=== PATIENT | male | born 1950 ===

== ENCOUNTER 2018-04-24 15:51 | Outpatient (REF) | payer MEDICARE, MEDICAID, SELFPAY ==
[2018-04-24 21:19] LABS: Anion Gap 10.2 mmol/L (3-11); BUN 12 mg/dL (7-18); CO2 26.8 mmol/L (21.0-32.0); CREATININE 1.12 mg/dL (0.70-1.30); Calcium 9.4 mg/dL (8.5-10.1); Chloride 104 mmol/L (98-107); Glucose 95 mg/dL (70-100); Potassium 4.8 mmol/L (3.5-5.1); Sodium 141 mmol/L (136-145)
[2018-04-28 11:57] LABS: Hepatitis C Ab w Rflx HCV PCR Negative (NEGAT)
== END 2018-04-24 16:11 ==
LOC: NCHCN 15:51
PROVIDERS: PCP Internal Medicine; Visit Provider Internal Medicine
DX: E11.9 Type 2 diabetes mellitus without complications (principal); I10 Essential (primary) hypertension; E78.5 Hyperlipidemia, unspecified; F17.220 Nicotine dependence, chewing tobacco, uncomplicated; Z11.59 Encounter for screening for other viral diseases; Z01.84 Encounter for antibody response examination
CPT/HCPCS: 80048; 86803

== ENCOUNTER 2019-08-27 14:58 | Outpatient (REF) | payer MEDICARE, MEDICAID, SELFPAY ==
[2019-08-27 21:15] LABS: Hemoglobin A1C 5.9 % (3.8-5.6)
[2019-08-27 21:30] LABS: Anion Gap 11.3 mmol/L (3-11); BUN 13 mg/dL (7-18); CO2 24.7 mmol/L (21.0-32.0); CREATININE 1.24 mg/dL (0.70-1.30); Calcium 9.3 mg/dL (8.5-10.1); Calculated LDL 72 mg/dL; Chloride 103 mmol/L (98-107); Cholesterol 157 mg/dL (<200); Estimated GFR 57.97 (mL/min/1.73m2); Glucose 119 mg/dL (74-106); HDL Cholesterol 56 mg/dL (40-60); Potassium 4.6 mmol/L (3.5-5.1); Sodium 139 mmol/L (136-145); Triglyceride 146 mg/dL (<150)
== END 2019-08-27 15:18 ==
LOC: NCHCN 14:58
PROVIDERS: PCP Internal Medicine; Visit Provider Internal Medicine
DX: E11.9 Type 2 diabetes mellitus without complications (principal); I10 Essential (primary) hypertension; E78.5 Hyperlipidemia, unspecified; F17.220 Nicotine dependence, chewing tobacco, uncomplicated
CPT/HCPCS: 80048; 80061; 83036

== ENCOUNTER 2020-08-22 15:54 | Outpatient (REF) | payer MEDICARE, MEDICAID, SELFPAY ==
[2020-08-22 21:18] LABS: Anion Gap 6.8 mmol/L (3-11); BUN 12 mg/dL (7-18); CO2 27.2 mmol/L (21.0-32.0); Calcium 9.5 mg/dL (8.5-10.1); Chloride 105 mmol/L (98-107); Estimated GFR 54.73 (mL/min/1.73m2); Glucose 125 mg/dL (74-106); Potassium 4.6 mmol/L (3.5-5.1); Sodium 139 mmol/L (136-145)
== END 2020-08-22 16:14 ==
LOC: NCHCN 15:54
PROVIDERS: PCP Internal Medicine; Visit Provider Internal Medicine
DX: I10 Essential (primary) hypertension (principal)
CPT/HCPCS: 80048

== ENCOUNTER 2022-01-10 14:06 | Outpatient (REF) | payer MEDICARE, MEDICAID, SELFPAY ==
[2022-01-10 21:17] LABS: HCT 43.7 % (40.0-50.0); HGB 14.5 g/dL (13.5-17.5); MCH 31.7 pg (27.0-33.0); MCHC 33.2 % (32.0-36.0); MCV 96 fL (80-95); MPV 10.1 fL (8.0-11.0); Platelet Count 259 10^3/uL (130-400); RBC 4.57 10^6/uL (4.36-5.78); RDW 13.3 % (11.8-14.1); RDW-SD 46.3 fL
[2022-01-10 21:29] LABS: ALT 31 U/L (16-63); AST 28 U/L (15-37); Albumin 4.2 g/dL (3.4-5.0); Alkaline Phosphatase 58 U/L (46-116); Anion Gap 10.1 mmol/L (3-11); BUN 14 mg/dL (7-18); Bilirubin, Total 0.3 mg/dL (0.2-1.0); CO2 23.9 mmol/L (21.0-32.0); CREATININE 1.3 mg/dL (0.70-1.30); Calcium 9.5 mg/dL (8.5-10.1); Chloride 104 mmol/L (98-107); Estimated GFR 54.42 (mL/min/1.73m2); Glucose 124 mg/dL (74-106); Potassium 5.2 mmol/L (3.5-5.1); Sodium 138 mmol/L (136-145); Total Protein 7.9 g/dL (6.4-8.2)
== END 2022-01-10 14:07 | disposition home or self-care (01) ==
LOC: NCHCN 14:06
PROVIDERS: PCP Internal Medicine; Visit Provider Family Medicine
DX: I10 Essential (primary) hypertension (principal); Z01.818 Encounter for other preprocedural examination
CPT/HCPCS: 80053; 85027

== ENCOUNTER 2022-02-06 10:48 | Outpatient (REF) | payer MEDICARE, MEDICAID, SELFPAY ==
[2022-02-07 15:18] LABS: COVID-19 RT-PCR UVMMC Result Negative (Negative)
== END 2022-02-06 10:49 | disposition home or self-care (01) ==
LOC: NCHCN 10:48
PROVIDERS: PCP Internal Medicine; Visit Provider Family Medicine
DX: Z20.822 Contact with and (suspected) exposure to COVID-19 (principal); Z01.818 Encounter for other preprocedural examination
CPT/HCPCS: U0003

== ENCOUNTER 2022-02-09 09:38 | Day surgery (SDC) | payer MEDICARE, MEDICAID, SELFPAY ==
[2022-02-09 09:45] VITALS: BP 143/74; PULSE 60; RESP 18; TEMP 36.5; O2SAT 98
[2022-02-09] MEDS: Tropicam./Phenyleph. (1/2.5%) 5 ML BTL OD ×3 (10:00→10:10)
--- NOTE | 2022-02-09 10:57 | W.ANESPRE ---
General Info Date of Service Date Performed: 02/09/22 Height: 5 ft 10 in Weight: 94.8 kg Body Mass Index (BMI): 29.9 Surgical Procedure: Operation Date: 02/09/22 12:40 Proposed Procedure Side Surgeon p Cataract Extraction with IOL Implant Right Qamar Jenkins MD Meds Allergies and Home Medications Allergies Allergy/AdvReac Type Severity Reaction Status Date / Time No Known Allergies Allergy Unverified 02/09/22 09:26 Home Medication Medication Instructions Recorded aspirin,buffered (calcium 325 mg PO DAILY 07/15/15 carbonate-magnesium) 325 mg tablet glimepiride 4 mg tablet 4 mg PO DAILY 07/15/15 lisinopril 10 mg tablet 10 mg PO DAILY 07/15/15 simvastatin 40 mg tablet 40 mg PO DAILY 07/15/15 metformin 1,000 mg tablet 1 tab PO BID 07/21/15 (Glucophage) aspirin 81 mg chewable tablet 1 tab PO DAILY 02/09/22 Current Visit Medications: Current Medications Generic Name Dose Route Start Last Admin Trade Name Freq PRN Reason Stop Dose Admin Acetaminophen 1,000 mg 02/09/22 06:00 Acetaminophen 500 Mg Tab PO Q4H PRN PRN Miscellaneous Medication 0 ml 02/09/22 06:00 Prednisolone 1%, Moxifloxacin 0.5%, Nepafenac 0.1% 5ml Btl OD DIRECTED [facility] Miscellaneous Medication 0 ml 02/09/22 06:00 02/09/22 10:10 Tropicam./Phenyleph. (1/2.5%) 5 Ml Btl OD 1 drp DIRECTED [facility] Administration Tetracaine HCl 0 ml 02/09/22 06:00 Tetracaine 0.5% 4 Ml Btl OD DIRECTED [facility] Medical History Medical History Diabetes HTN (hypertension) Surgical History Surgical History History of cataract surgery Tobacco Smoking/Tobacco Use Status: Former Tobacco Use Alcohol Alcohol Intake: current Alcohol intake frequency: 0-2 drinks per day Alcohol type: beer Substance Use Substance use: Never Substance use type: does not use Vital Signs and Lab Results Vital Signs Most Recent Vital Signs in EMR: Most Recent Vital Signs Temp Pulse Resp BP Pulse Ox 36.5 C 60 18 143/74 H 98 02/09/22 09:45 02/09/22 09:45 02/09/22 09:45 02/09/22 09:45 02/09/22 09:45 Point of Care Results Point of Care Results: Finger Stick Blood Glucose 114 02/09/22 10:01 Lab Results Blood Type / Crossmatch: No Data to Display Complete Blood Count: White Blood Count 8.60 10^3/uL (4.4-10.8) 01/10/22 13:45 Red Blood Count 4.57 10^6/uL (4.36-5.78) 01/10/22 13:45 Hemoglobin 14.5 g/dL (13.5-17.5) 01/10/22 13:45 Hematocrit 43.7 % (40.0-50.0) 01/10/22 13:45 Platelet Count 259 10^3/uL (130-400) 01/10/22 13:45 Complete Metabolic Panel: Sodium Level 138 mmol/L (136-145) 01/10/22 13:45 Potassium Level 5.2 mmol/L (3.5-5.1) H 01/10/22 13:45 Chloride Level 104 mmol/L (98-107) 01/10/22 13:45 Carbon Dioxide Level 23.9 mmol/L (21.0-32.0) 01/10/22 13:45 Blood Urea Nitrogen 14 mg/dL (7-18) 01/10/22 13:45 Creatinine 1.3 mg/dL (0.70-1.30) 01/10/22 13:45 Estimated GFR/1.73 m2 54.42 (mL/min/1.73m2) 01/10/22 13:45 Calcium Level 9.5 mg/dL (8.5-10.1) 01/10/22 13:45 Albumin 4.2 g/dL (3.4-5.0) 01/10/22 13:45 Glucose Level 124 mg/dL (74-106) H 01/10/22 13:45 Liver Function Panel: Alanine Aminotransferase (ALT/SGPT) 31 U/L (16-63) 01/10/22 13:45 Aspartate Amino Transf (AST/SGOT) 28 U/L (15-37) 01/10/22 13:45 Coagulation Panel: No Data to Display Cardiac Panel: No Data to Display Arterial Blood Gas: No Data to Display Venous Blood Gas: No Data to Display Pancreas Panel: No Data to Display Thyroid Panel: No Data to Display Infectious Disease: Coronavirus (COVID-19)(PCR) Negative (Negative) 02/06/22 10:00 Blood Cultures: No Data to Display Toxicology Panel: No Data to Display Anesthesia Assessment and Plan Anesthesia History Personal History: No History of Anesthesia Complications Family History: No Family History of Anesthesia Complications Exercise Tolerance Exercise Tolerance: Metabolic Equivalents>4 Pertinent Negatives Pertinent Negatives: No Symptoms of GERD, No Major Cardiovascular Symptoms or Complaints and No Major Pulmonary Symptoms or Complaints Cardiac & Pulmonary Exam Cardiac Exam: Normal S1/S2 Heart Sounds Pulmonary Exam: Clear Bilateral Breath Sounds Implantable Cardiac Device Does patient have a Pacemaker or an ICD?: No Airway Exam Known Difficult Airway: No Mallampati Class: 1 Mouth Opening: Normal (> 3cm) Thyromental Distance: Greater than 3 cm Neck Range of Motion: Full ROM Neck Circumference: Normal Teeth Condition: Edentulous ASA Classification ASA Score: ASA 2 Emergency Case?: No NPO Status NPO Status: NPO Clears >2 hours, Solids >8 hours Anesthesia Plan Resuscitation Status: Full Code Anesthesia Technique: MAC Anesthesia Airway Planned: Natural Airway Monitors Used: Standard Monitors
[2022-02-09 11:25] VITALS: BMI 29.9
[2022-02-09] MEDS: Tetracaine 0.5% 4 ML BTL OD (11:36)
[2022-02-09] MEDS: Duovisc Viscoelastic System EACH 1 EACH (11:37)
[2022-02-09] MEDS: Balanced Salt Soln.-PLUS 500 ML BAG (11:37)
[2022-02-09] MEDS: Lidocaine 2% Jelly 6 ML SYR (11:38)
[2022-02-09] MEDS: Povidone-Iodine Ophth 30 ML BTL (11:39)
[2022-02-09] MEDS: Trypan Blue 0.06% 0.5 ML SYR (11:39)
--- NOTE | 2022-02-09 12:12 | W.PM.DSUDISC ---
Discharge Plan Disposition Patient Disposition: HOME Condition: Good Discharge Details Attending Provider: Qamar Jenkins Primary Care Provider: Ole Johnson Home Meds and New Rx's Prescriptions: No Action aspirin,buffd-calcium carb-mag 325 MG tablet 325 mg PO DAILY simvastatin 40 MG tablet 40 mg PO DAILY lisinopril 10 MG tablet 10 mg PO DAILY glimepiride 4 MG tablet 4 mg PO DAILY metformin [Glucophage] 1,000 MG tablet 1 tab PO BID aspirin 81 mg tablet,chewable 1 tab PO DAILY Label Comments: 1 once a day Discharge Instructions Stand Alone Forms: Post-op Topical Cataract, Hector Llamas (DSU) Discharge Orders Discharge Orders: Discharge Order (Routine); Ordered 02/09/22 Ordered By: Qamar Jenkins DS: Diagnosis Discharge Diagnosis (1) Nuclear sclerotic cataract of right eye: Status: Resolved
--- NOTE | 2022-02-09 12:14 | ROE_ITS ---
Date of service: 02/09/22 Time of Service: 12:14 Operative Note Operative Note DATE OF PROCEDURE: 02/09/22 PRE-OP DIAGNOSIS: Dense brunescent nuclear cataract, right eye POST-OP DIAGNOSIS: same PROCEDURE: Cataract extraction using phacoemulsification with intraocular lens implantation, right eye, using capsular staining with Vision Blue SURGEON: Qamar Jenkins ANESTHESIA TYPE: Local By Surgeon and MAC Refer to Anesthesia Record PATHOLOGY: none sent COMPLICATIONS: None Patient was transported to: same day Patient's condition: stable Implants: [employer] / [employer] Tecnis [id number] Indications: Progressive visual loss due to cataract, right eye Procedure Description: CATARACT SURGERY OPERATIVE REPORT PREOPERATIVE DIAGNOSIS: 1. Dense brunescent nuclear cataract, right eye 2. Poor red reflex secondary to #1 POSTOPERATIVE DIAGNOSIS: Same OPERATION: 1. Cataract extraction using phacoemulsification with posterior chamber intraocular lens implant, right eye. 2. Capsular staining with Vision Blue IOL: IOL Senior Scheduler/Model: [employer] Coy / ANISA Tecnis [id number] IOL Power: + 20.5 diopters IOL Serial Number: [id number] Optic Diameter: 6.0mm Haptic/Overall Diameter: 13.0mm PHACO INFO: Gildardo Centurion Vision System with OZil and Active Fluidics Cumulative Dispersed Energy (CDE): 39.31 seconds SURGEON: Qamar Jenkins MD, LAVONNE ANESTHESIA: Monitored Anesthesia Care (MAC), with local sub-tenon's anesthetic infiltration COMPLICATIONS: None SPECIMENS: None INDICATIONS FOR PROCEDURE: The patient is a 71-year-old gentleman with history of bilateral cataracts who previously underwent cataract surgery in his left eye several years ago. He now presents with a dense brunescent nuclear cataract in the right eye. The option of cataract surgery was offered to the patient and he wished to proceed. PROCEDURE: The correct surgical eye was identified and marked as the right eye and the pupil was dilated in the preoperative area using mydriatics and cycloplegics. The dilated pupil size was 6.0 mm. He elected to proceed without oral sedation. The patient was brought to the operating room where cardiopulmonary monitoring was instituted and surgical time-out was performed, confirming the correct operative eye and IOL power. Topical anesthesia was administered and ophthalmic povidone-iodine 5% was instilled into the conjunctival fornices. Lidocaine gel was applied to the cornea and the marlyn-ocular area was prepped with Betadine 10% solution and draped in the usual sterile fashion for intraocular surgery, including an aperture drape. A Tegaderm transparent film dressing was cut in half and used t o cover the lashes and lid margins. Care was taken to sequester the lashes and lid margins under the Tegaderm dressing. A lid speculum was placed between the lids of the operative eye and the Gildardo Lux[employer] Revalia operating microscope was maneuvered into position. Erin scissors were then used to make a conjunctival buttonhole approximately 6mm posterior to the limbus in the inferonasal quadrant. Blunt dissection was carried out to expose bare sclera, and a blunt-tipped sub-tenon?s anesthesia cannula was introduced and passed posteriorly along the globe where non- preserved plain lidocaine was injected into posterior sub-Tenon?s space. A sideport knife was used to make a paracentesis port inferotemporally. Intraocular phenylephrine/lidocaine was injected into the anterior chamber. Air was injected into the anterior chamber, followed by Vision Blue, which was painted over the anterior capsule and then irrigated out with BSS. The anterior chamber was filled with viscoelastic. A 2.6 mm keratome knife was used to create a 2-plane near clear corneal tunnel extending approximately 2 mm into clear cornea superior temporally.. A flap was raised on the anterior capsule and capsulorhexis forceps were used to complete a continuous curvilinear capsulorhexis of 5.0 mm. Balanced salt solution was then used to perform cortical cleaving hydrodissection and nuclear hydrodelineation until the lens could be freely rotated within the capsular bag. The lens nucleus was then disassembled and removed within the capsular bag and iris plane using phacoemulsification. A stop and chop technique was used. Viscoat was intermittently injected into the anterior chamber to protect the corneal endothelium due to the very dense brunescent nucleus. Residual cortical material was removed using the I/A handpiece. The posterior capsule was carefully polished to remove as much residual lens epithelial cells as safely possible. The capsular bag was then inflated and the anterior chamber deepened with viscoelastic. The lens implant described above was inserted into the capsular bag using the ANISA [place] Injector. A Kuglen hook was used to dial the IOL into position. Residual viscoelastic was then removed first from posterior to the IOL, then from the anterior chamber using the I/A handpiece. The lens implant was noted to center nicely within the capsular bag. The incisions were stromally hydrated, and the anterior chamber was reformed using BSS. Then 0.5cc of moxifloxacin 1.0mg/ml were injected into the capsular bag and anterior chamber. The incisions were checked with a Weck spear and found to be secure. Several drops of ophthalmic povidone-iodine 5% were then applied to the eye followed by two drops of Imprimis combination prednisolone/moxifloxacin/nepafenac solution. The drapes were removed and a clear plastic protective eye shield was placed over the eye. The patient was then returned to Same Day Surgery in stable condition.
[2022-02-09 12:17] VITALS: BP 134/71; PULSE 56; RESP 20; TEMP 36; O2SAT 98
--- NOTE | 2022-02-09 12:22 | W.ANESPOSTOP ---
Postoperative Evaluation Date, Time and Location Date Performed: 02/09/22 Time Performed: 12:18 Patient Location: Day Surgery Unit Vital Signs Most Recent Imported Vital Signs: Most Recent Vital Signs Temp Pulse Resp BP Pulse Ox 36.0 C L 56 L 20 134/71 98 02/09/22 12:17 02/09/22 12:17 02/09/22 12:17 02/09/22 12:17 02/09/22 12:17 Pain Score Most Recent Pain Score: Most Recent Pain Score Pain Level 0 02/09/22 12:17 Assessment Mental Status: Awake (Alert & Oriented to Patient Baseline) Airway and Respiratory Function: Patent airway with normal (patient baseline) respiratory exam Cardiovascular Function: Hemodynamically Stable Hydration Status: Adequately Hydrated Nausea & Vomiting: No Nausea or Vomiting Pain: Pt. Denies Any Pain Peripheral Nerve Block: Patient did not receive a nerve block
== END 2022-02-09 12:30 | disposition home or self-care (01) ==
PROVIDERS: PCP Internal Medicine; Visit Provider Ophthalmology
PROC: (CPT 66984; principal; 2022-02-09 12:30)
DX: H25.11 Age-related nuclear cataract, right eye (principal); E11.9 Type 2 diabetes mellitus without complications; I10 Essential (primary) hypertension
CPT/HCPCS: 66984; V2632

== ENCOUNTER 2023-04-22 17:48 | Outpatient (REF) | payer MEDICARE, MEDICAID, SELFPAY ==
[2023-04-22 21:55] LABS: ALT 31 U/L (16-63); AST 21 U/L (15-37); Albumin 4.2 g/dL (3.4-5.0); Alkaline Phosphatase 63 U/L (46-116); Anion Gap 6.3 mmol/L (3-11); BUN 16 mg/dL (7-18); Bilirubin, Total 0.3 mg/dL (0.2-1.0); CO2 26.7 mmol/L (21.0-32.0); CREATININE 1.3 mg/dL (0.70-1.30); Calcium 10.1 mg/dL (8.5-10.1); Chloride 101 mmol/L (98-107); Estimated GFR 58.37 (mL/min/1.73m2); Glucose 106 mg/dL (74-106); Potassium 4.6 mmol/L (3.5-5.1); Sodium 134 mmol/L (136-145); Total Protein 8.2 g/dL (6.4-8.2)
== END 2023-04-22 17:49 | disposition home or self-care (01) ==
LOC: NCHCN 17:48
PROVIDERS: Visit Provider Family Medicine
DX: I10 Essential (primary) hypertension (principal); E11.9 Type 2 diabetes mellitus without complications
CPT/HCPCS: 80053

== ENCOUNTER 2024-05-18 21:15 | Outpatient (REF) | payer MEDICARE, MEDICAID, SELFPAY ==
[2024-05-18 21:21] LABS: ALT 37 U/L (16-63); AST 25 U/L (15-37); Albumin 4.1 g/dL (3.4-5.0); Alkaline Phosphatase 63 U/L (46-116); Anion Gap 10.6 mmol/L (3-11); BUN 8 mg/dL (7-18); Bilirubin, Total 0.46 mg/dL (0.2-1.0); CO2 27.4 mmol/L (21.0-32.0); CREATININE 1.2 mg/dL (0.70-1.30); Calcium 9.6 mg/dL (8.5-10.1); Chloride 105 mmol/L (98-107); Estimated GFR 63.85 (mL/min/1.73m2); Glucose 97 mg/dL (74-106); Potassium 4.6 mmol/L (3.5-5.1); Sodium 143 mmol/L (136-145); Total Protein 7.6 g/dL (6.4-8.2)
== END 2024-05-18 21:16 | disposition home or self-care (01) ==
LOC: NCHCN 21:15
PROVIDERS: Visit Provider Family Medicine
DX: I10 Essential (primary) hypertension (principal)
CPT/HCPCS: 80053

== ENCOUNTER 2025-06-24 15:41 | Outpatient (REF) | payer MEDICARE, MEDICAID, SELFPAY ==
[2025-06-24 20:23] LABS: HCT 41.8 % (40.0-50.0); HGB 14.4 g/dL (13.5-17.5); MCH 31.5 pg (27.0-33.0); MCHC 34.4 % (32.0-36.0); MCV 92 fL (80-95); MPV 9.9 fL (8.0-11.0); Platelet Count 264 10^3/uL (130-400); RBC 4.57 10^6/uL (4.36-5.78); RDW 12.1 % (11.8-14.1); RDW-SD 40.3 fL; WBC 8.89 10^3/uL (4.4-10.8)
[2025-06-24 20:37] LABS: ALT 27 U/L (10-49); AST 23 U/L (<34); Albumin 4.7 g/dL (3.4-5.0); Alkaline Phosphatase 55 U/L (46-116); Anion Gap 5.1 mmol/L (3-11); BUN 13 mg/dL (9-23); Bilirubin, Total 0.30 mg/dL (0.2-1.2); CO2 27.9 mmol/L (20.0-31.0); Calcium 9.5 mg/dL (8.3-10.6); Chloride 103 mmol/L (98-107); Glucose 122 mg/dL (74-106); Potassium 4.7 mmol/L (3.5-5.1); Sodium 136 mmol/L (136-145); Total Protein 7.5 g/dL (5.7-8.2)
== END 2025-06-24 15:42 | disposition home or self-care (01) ==
LOC: NCHCN 15:41
PROVIDERS: Visit Provider Family Medicine
DX: E78.5 Hyperlipidemia, unspecified (principal); I10 Essential (primary) hypertension
CPT/HCPCS: 80053; 83721; 85027

== ENCOUNTER → 2025-07-05 09:25 | Outpatient (BNVA) | payer MEDICARE, MEDICAID, SELFPAY | PROVIDERS: PCP Family Medicine; Visit Provider Student in an Organized Health Care Education/Training Program | DX: R19.5 Other fecal abnormalities (principal) | CPT/HCPCS: 99203 ==

== ENCOUNTER 2025-07-14 09:54 | Day surgery (SDC) | payer MEDICARE, MEDICAID, SELFPAY ==
--- NOTE | 2025-07-13 17:35 | ANES.PREOP_ITS ---
General Info Date of Service Date Performed: 07/14/25 Height: 5 ft 10 in Weight: 97.976 kg Body Mass Index (BMI): 30.9 Surgical Procedure: Operation Date: 07/14/25 11:05 Proposed Procedure Side Surgeon p Colonoscopy Maia Whitlock MD Meds Allergies and Home Medications Allergies Allergy/AdvReac Type Severity Reaction Status Date / Time No Known Allergies Allergy Verified 07/14/25 10:16 Home Medication ?Medication ?Instructions ?Recorded aspirin,buffered (calcium 325 mg PO DAILY 07/15/15 carbonate-magnesium) 325 mg tablet Held on 07/12/25. Instructions: Pt Stopped/Never Started glimepiride 4 mg tablet 4 mg PO DAILY 07/15/15 Held on 07/12/25. Instructions: Pt Stopped/Never Started lisinopril 10 mg tablet 10 mg PO DAILY 07/15/15 simvastatin 40 mg tablet 40 mg PO DAILY 07/15/15 aspirin 81 mg chewable tablet 1 tab PO DAILY 02/09/22 Held on 07/12/25. Instructions: Pt Stopped/Never Started bisacodyl 5 mg tablet,delayed 5 mg PO ONCE Colonoscopy Bowel 07/05/25 release Prep #4 tabs metformin 1,000 mg tablet 500 mg PO ONCE 07/05/25 (Glucophage) polyethylene glycol 3350 17 238 g PO ONCE #238 grams 1 09/05/24 gram/dose oral powder Current Visit Medications: Current Medications Generic Name Dose Route Start Last Admin Trade Name Freq PRN Reason Stop Dose Admin Ringer's Solution 1,000 mls @ 80 mls/hr 07/14/25 06:00 IV 07/14/25 23:59 INFUSION CHRISTOFER Sodium Chloride 0 ml 07/14/25 06:00 Normal Saline Flush 10 Ml Syr IV 07/14/25 23:59 PRN PRN Sodium Chloride 0 ml 07/14/25 06:00 Normal Saline 10 Ml Vial IJ 07/14/25 23:59 DIRECTED PRN Sterile Water 0 ml 07/14/25 06:00 Water,Injection,Sterile 10 Ml Vial IJ 07/14/25 23:59 DIRECTED PRN PFSH Active Problems Active Problems: Problem Status Onset Code Guaiac positive stools Acute R19.5 Nuclear sclerotic cataract of right eye Resolved H25.11 Medical History Medical History Chewing tobacco dependence Literacy problem Diabetes HTN (hypertension) Surgical History Surgical History History of cataract surgery Tobacco Smoking/Tobacco Use Status: Current every day Tobacco Type: cigarettes and smokeless tobacco Alcohol Alcohol Intake: current Alcohol intake frequency: 0-2 drinks per day Alcohol type: beer Substance Use Substance use: Never Substance use type: does not use Vital Signs and Lab Results Lab Results Complete Blood Count: WBC, (4.4-10.8) 8.89 10^3/uL 06/24/25, 13:50 RBC, (4.36-5.78) 4.57 10^6/uL 06/24/25, 13:50 Hgb, (13.5-17.5) 14.4 g/dL 06/24/25, 13:50 Hct, (40.0-50.0) 41.8 % 06/24/25, 13:50 Plt Count, (130-400) 264 10^3/uL 06/24/25, 13:50 Complete Metabolic Panel: Sodium, (136-145) 136 mmol/L 06/24/25, 13:50 Potassium, (3.5-5.1) 4.7 mmol/L 06/24/25, 13:50 Chloride, (98-107) 103 mmol/L 06/24/25, 13:50 Carbon Dioxide, (20.0-31.0) 27.9 mmol/L 06/24/25, 13 :50 BUN, (9-23) 13 mg/dL 06/24/25, 13:50 Creatinine, (0.73-1.18) 1.2 mg/dL H 06/24/25, 13:50 Est GFR (CKD-EPI 2020), (mL/min/1.73m2) 60.83 06/24/25, 13:50 Calcium, (8.3-10.6) 9.5 mg/dL 06/24/25, 13:50 Albumin, (3.4-5.0) 4.7 g/dL 06/24/25, 13:50 Glucose, (74-106) 122 mg/dL H 06/24/25, 13:50 Liver Function Panel: ALT, (10-49) 27 U/L 06/24/25, 13:50 AST, (<34) 23 U/L 06/24/25, 13:50 Anesthesia Assessment and Plan Anesthesia History Personal History: Unknown Anesthesia History Family History: No Family History of Anesthesia Complications Exercise Tolerance Exercise Tolerance: Metabolic Equivalents>4 Cardiac & Pulmonary Exam Cardiac Exam: Normal S1/S2 Heart Sounds Pulmonary Exam: Clear Bilateral Breath Sounds Implantable Cardiac Device Does patient have a Pacemaker or an ICD?: No Airway Exam Known Difficult Airway: No Mallampati Class: 2 Mouth Opening: Normal (> 3cm) Thyromental Distance: Greater than 3 cm Neck Range of Motion: Full ROM Neck Circumference: Normal Teeth Condition: Edentulous ASA Classification ASA Score: ASA 2 Emergency Case?: No NPO Status NPO Status: NPO Clears >2 hours, Solids >8 hours Anesthesia Plan Resuscitation Status: Full Code Anesthesia Technique: General Anesthesia Airway Planned: Natural Airway Monitors Used: Standard Monitors Preoperative Comments:: 74 yo for colo. Sig PMHx: HTN (lisinopril), DM (metformin, glimipiride) Daily tobacco, occ EtOH.
[2025-07-14 10:27] VITALS: BP 166/104; PULSE 68; RESP 16; TEMP 36.5; O2SAT 97
[2025-07-14] MEDS: Lactated Ringers 1,000 ML 80 ML IV (10:39)
[2025-07-14 10:43] VITALS: BMI 30.9
--- NOTE | 2025-07-14 11:43 | BOWEL_PTH ---
PATIENT: Babar Kenney LOC: [facility] U#:[id number] AGE/SX: 74/M ROOM: RE07/14/[address]: Maia Whitlock : 1950 BED: DIS: 07/14/2025 SPEC #: [id number] RECD: 07/14/25 13:03 STATUS: [facility]CE RE #: [id number] FAINA: 07/14/25 11:[address]: Maia Whitlock DEPT: Surgical Specimen RECD BY: Flower Johnson ENTERED: 07/14/25 13:04 SP TYPE: Bowel OTHR DR: Sebastian Shaw Tissues: 1 - BIOPSY BOWEL 2 - BIOPSY BOWEL Procedures: GROSS AND MICRO LEVEL 4 Comments: [id number]
[2025-07-14 12:02] VITALS: BP 124/74; PULSE 67; RESP 16; TEMP 36.1; O2SAT 97
--- NOTE | 2025-07-14 12:02 | W.PM.DSUDISC ---
Date of service: 07/14/25 Discharge Plan Disposition Patient Disposition: Home Condition: Good Discharge Details Reason For Visit: Positive fecal occult blood Attending Provider: Maia Whitlock Primary Care Provider: Sebastian Shaw Recommendations for Follow Up Recommended tests to be ordered by follow up provider: Follow up pathology Home Meds and New Rx's Prescriptions: Continued aspirin,buffd-calcium carb-mag 325 MG tablet 325 mg PO DAILY simvastatin 40 MG tablet 40 mg PO DAILY lisinopril 10 MG tablet 10 mg PO DAILY glimepiride 4 MG tablet 4 mg PO DAILY metformin [Glucophage] 1,000 mg tablet 500 mg PO ONCE aspirin 81 mg tablet,chewable 1 tab PO DAILY Patient Comments: 1 once a day Discontinued bisacodyl 5 mg tablet,delayed release (DR/EC) 5 mg PO ONCE Qty: 4 0RF Rx Instructions: Per Colonoscopy bowel prep instructions polyethylene glycol 3350 17 gram/dose powder 238 g PO ONCE Qty: 238 0RF Rx Instructions: For Colonoscopy bowel prep, as directed by office Discharge Instructions Instructions: Colon polyps Additional Instructions: Your procedure went well today. He did have evidence of diverticulosis or small outpouchings of the colon. You had 1 large polyp in the rectum which was removed. He also had 2 additional small polyps in the rectum which were removed. These polyps will be sent to pathology. When we get these pathology results back we will reach out to you by mail and give recommendations for when to have a repeat colonoscopy. If you have any questions or concerns please contact the surgery office. 1. If tolerated, consume a soft, low fiber diet for 1-2 days. [address] Do not drive, drink alcohol, operate machinery, make critical decisions, or do activities that require coordination or balance for 24 hours. 3. Because air was put into your colon during the procedure, expelling air from your rectum (passing gas or farting) is normal. 4. You may not have a bowel movement for 1-3 days because of the colonoscopy prep. This is normal. 5. Go directly to the emergency room if you notice any of the following: Develop chills (warm to touch), or if you have a thermometer and your temperature is above 101 Difficulty breathing or difficultly swallowing Persistent vomiting Severe abdominal pain, other than gas cramps Severe chest pain Black, tarry stools Any bleeding ? exceeding one tablespoon 6. Call your physician if the site where your intravenous was started becomes red, swollen, painful, and warm to touch. 7. Your physician has reviewed your pre-procedure medications. Please continue to take those medications as previously ordered. You will be given specific information/education regarding any changes to your medications before leaving. Stand Alone Forms: Anesthesia Discharge Inst., Hector Llamas (DSU), Portal Information Activity:: Activity as Tolerated Diet:: As Tolerated Discharge Orders Discharge Orders: Discharge Order (Routine); Ordered 07/14/25 Ordered By: Maia Whitlock
--- NOTE | 2025-07-14 12:05 | W.COLOREPORT ---
Date of service: 07/14/25 Time of Service: 12:05 Colonoscopy Report Date of procedure: 07/14/25 Pre-op diagnosis general: Positive fecal occult blood test Post-op diagnosis procedure note: other (Colon polyps ) Procedure: Colonoscopy with polypectomy Surgeon: Maia Whitlock Anesthesia Type: General:No Airway Estimated blood loss (mL): 2 Pathology: other (Large rectal polyp, rectal polyps x2) Complications: None Disposition: PACU Indications: Patient is a 74-year-old male who presents for a colonoscopy given a positive fecal occult blood test. He denies any blood in his stool or changes in bowel habits. Prep: Miralax/Dulcolax Procedure Start Time: 11:26 Procedure End Time: 11:58 Retraction Time: 22 Findings: Evidence of diverticulosis throughout the rectosigmoid colon. A large 1 cm pedunculated polyp was identified in the rectum which was removed with a hot snare. Two additional small polyps were also identified in the rectum and removed with cold forcep biopsies. Procedure Description: The patient was brought to the endoscopy suite and placed in the left lateral decubitus position. After induction of IV sedation, a digital rectal exam was performed.. Digital exam was normal. The colonoscope was then passed to the cecum without difficulty. Cecal intubation was confirmed by the identification of the appendiceal orifice and the ileocecal valve. Upon withdrawing the colonoscope, all mucosal surfaces were inspected. The prep was noted to be adequate. There was evidence of diverticulosis throughout the rectosigmoid colon. In the rectum there was a large 1 cm pedunculated polyp which was removed using a hot snare in its entirety. There was also evidence of 2 small rectal polyps which were removed with cold forcep biopsies. Specimens were retrieved for pathological analysis. There was no other evidence of mucosal abnormality, polyp or cancer. Retroflexion in the rectum was unremarkable. The patient tolerated the procedure well with no complications. Postoperatively, the patient was transferred to the recovery room in stable condition. Slayton Bowel Prep Slayton Bowel Prep Right Colon: 3 Left Colon: 3 Transverse Colon: 3 Total Score: 9
--- NOTE | 2025-07-14 12:09 | W.ANESPOSTOP ---
Postoperative Evaluation Date, Time and Location Date Performed: 07/14/25 Vital Signs Most Recent Imported Vital Signs: Most Recent Vital Signs Temp Pulse Resp BP Pulse Ox 36.5 C 68 16 166/104 H 97 07/14/25 10:27 07/14/25 10:27 07/14/25 10:27 07/14/25 10:27 07/14/25 10:27 Pain Score Most Recent Pain Score: Most Recent Pain Score Pain Level 0 07/14/25 10:27
--- NOTE | 2025-07-14 12:27 | W.ANESPOSTOP ---
Postoperative Evaluation Date, Time and Location Date Performed: 07/14/25 Time Performed: 12:05 Patient Location: Day Surgery Unit Vital Signs Most Recent Imported Vital Signs: Most Recent Vital Signs Temp Pulse Resp BP Pulse Ox 36.1 C L 67 16 124/74 97 07/14/25 12:02 07/14/25 12:02 07/14/25 12:02 07/14/25 12:02 07/14/25 12:02 Most Recent Vital Signs Temp Pulse Resp BP Pulse Ox 36.5 C 68 16 166/104 H 97 07/14/25 10:27 07/14/25 10:27 07/14/25 10:27 07/14/25 10:27 07/14/25 10:27 Pain Score Most Recent Pain Score: Most Recent Pain Score Pain Level 0 07/14/25 12:02 Assessment Mental Status: Awake (Alert & Oriented to Patient Baseline) Airway and Respiratory Function: Patent airway with normal (patient baseline) respiratory exam Cardiovascular Function: Hemodynamically Stable Hydration Status: Adequately Hydrated Nausea & Vomiting: No Nausea or Vomiting Pain: Pt. Denies Any Pain Peripheral Nerve Block: Patient did not receive a nerve block
== END 2025-07-14 12:53 | disposition home or self-care (01) ==
PROVIDERS: PCP Family Medicine; Visit Provider Student in an Organized Health Care Education/Training Program
PROC: 0DJD8ZZ Inspection of Lower Intestinal Tract, Via Natural or Artificial Opening Endoscopic (ICD-10-PCS; CPT 45378; principal; 2025-07-14 11:00)
DX: R19.5 Other fecal abnormalities (principal); D37.4 Neoplasm of uncertain behavior of colon
CPT/HCPCS: 45385; 45380; 88305; J2704